=== PATIENT | female | born 1945 | race Caucasian/White ===

== ENCOUNTER → 2016-11-24 | Outpatient (CLI) | payer OTHER ==
[~2016-11-24] MED LIST: ACET-1256 PO; ALBI1INJ INJ; ALPR-411 PO; ALPR0.25 PO; AMOX500C3 PO; CLTP PO; EMBREL; EMPA1TAB3 PO; FOLI1TAB7 PO; GABA1CAP5 PO; GABA300C19 PO; GABA400C PO; GLIM4TAB2 PO; HYDR-5688 PO; HYDR2.5O TOP; INDSR80 PO; LORA10TA5 PO; LPT/40 PO; LRT5 PO; METH2.5T PO; PANT40TA PO; PREDPOW63; PRT/20 PO; RIZA10TA18 PO; RMCI IV; TRAM-10 PO; ULT/50 PO; albuterol inhaler INH; coumadin PO
[2016-11-24 18:24] LABS: BASO % 0.6 %; BASO ABS # 0.06 K/uL (0-0.2); COMPLETE YES; EOS % 1.4 %; HEMATOCRIT 41.8 % (37-47); IG% 0.3 %; LYMPH % 28.2 %; LYMPH ABS # 2.62 K/uL (1.2-3.4); MEAN CELL VOLUME 85.8 fL (80-100); MEAN CORPUSCULAR HEMOGLOBIN 26.5 pg (25-34); MEAN CORPUSCULAR HGB CONC 30.9 g/dl (32-36); MEAN PLATELET VOLUME 9.8 fL (7.4-10.4); MONO % 14.6 %; NEUT % 54.9 %; PLATELET COUNT 242 K/uL (130-400); RED BLOOD COUNT 4.87 M/uL (4.2-5.4)
[2016-11-24 18:33] LABS: ALT/SGPT 20 U/L (12-78); BLOOD UREA NITROGEN 16 mg/dl (7-18); BUN/CREATININE RATIO 19.1 (10-20); CALCIUM 9.1 mg/dl (8.5-10.1); CARBON DIOXIDE 29 mmol/L (21-32); CHLORIDE 101 mmol/L (98-107); CREATININE 0.86 mg/dl (0.60-1.20); GLUCOSE 103 mg/dl (70-99); POTASSIUM 4.3 mmol/L (3.5-5.1); SODIUM 141 mmol/L (136-145)
[2016-11-24 18:35] LABS: ALB/GLOB RATIO 0.7 (0.9-2); ALKALINE PHOSPHATASE 51 U/L (45-117); AST/SGOT 24 U/L (15-37)
--- NOTE | 2016-12-01 11:14 | CODING QUERY NO DIAGNOSIS ---
TREATMENT RENDERED WITHOUT A DIAGNOSIS To promote full compliance with coding requirements relating to patient care, physician participation is requested in all cases of claims agent right of way uncertainty. Please assist us with providing a diagnosis/symptom for the test(s) below: A diagnosis/symptom was not documented on your Order. A valid diagnosis/symptom is required to bill all insurances. Please remember that we are unable to code a diagnosis of rule out, probable, possible, questionable, or suspected. Tests that require a diagnosis: DOS 11/24/16 * CBC DIAGNOSIS: * CMP DIAGNOSIS: Provider Signature: Date: Thank you Joellen Thomason Health Information Management Once completed, please kindly fax back to [phone] For questions please call [phone]
== END | disposition home or self-care (01) ==
LOC: C.LABMFLN 14:46
PROVIDERS: ATTEND Family Medicine
DX: R05 Cough (principal)

== ENCOUNTER → 2016-12-02 | Outpatient (CLI) | payer OTHER ==
[2016-12-02 13:44] LABS: ALT/SGPT 20 U/L (12-78); AST/SGOT 10 U/L (15-37); BLOOD UREA NITROGEN 16 mg/dl (7-18); BUN/CREATININE RATIO 18.3 (10-20); CALCIUM 8.7 mg/dl (8.5-10.1); CARBON DIOXIDE 33 mmol/L (21-32); CHLORIDE 99 mmol/L (98-107); CREATININE 0.88 mg/dl (0.60-1.20); GLUCOSE 122 mg/dl (70-99); POTASSIUM 3.9 mmol/L (3.5-5.1); SODIUM 139 mmol/L (136-145)
[2016-12-02 13:47] LABS: ALB/GLOB RATIO 0.8 (0.9-2); ALKALINE PHOSPHATASE 49 U/L (45-117); CHOLESTEROL 147 mg/dl (0-200); CHOLESTEROL/HDL RATIO 1.9; HDL CHOLESTEROL 77 mg/dl; LDL CHOLESTEROL CALCULATED 39 mg/dl; TRIGLYCERIDES 153 mg/dl (0-150); VERY LOW DENSITY LIPOPROT CALC 31 mg/dl
[2016-12-02 14:08] LABS: ESTIMATED AVERAGE GLUCOSE 169 mg/dl; HA1C FLAG Normal (Normal)
== END | disposition home or self-care (01) ==
LOC: C.LABMFLN 08:35
PROVIDERS: ATTEND Family Medicine
DX: E78.5 Hyperlipidemia, unspecified (principal); I10 Essential (primary) hypertension; E11.40 Type 2 diabetes mellitus with diabetic neuropathy, unspecified

== ENCOUNTER → 2017-05-20 | Outpatient (CLI) | payer OTHER ==
[2017-05-20 18:16] LABS: BLOOD UREA NITROGEN 11 mg/dl (7-18); BUN/CREATININE RATIO 14.8 (10-20); CALCIUM 8.8 mg/dl (8.5-10.1); CARBON DIOXIDE 31 mmol/L (21-32); CHLORIDE 107 mmol/L (98-107); CREATININE 0.77 mg/dl (0.60-1.20); GLUCOSE 137 mg/dl (70-99); POTASSIUM 3.9 mmol/L (3.5-5.1); SODIUM 143 mmol/L (136-145)
[2017-05-21 07:47] LABS: ESTIMATED AVERAGE GLUCOSE 160 mg/dl; HA1C FLAG Normal (Normal)
== END | disposition home or self-care (01) ==
LOC: C.LABMFLN 14:20
PROVIDERS: ATTEND Family Medicine
DX: E11.40 Type 2 diabetes mellitus with diabetic neuropathy, unspecified (principal)

== ENCOUNTER 2017-07-01 07:48 | Day surgery (SDC) | payer OTHER ==
[2017-06-28 15:12] VITALS: BMI 42.0
[2017-06-28 16:32] LABS: BASO % 0.5 %; BASO ABS # 0.04 K/uL (0-0.2); EOS % 2.4 %; HEMATOCRIT 40.6 % (37-47); IG% 0.2 %; LYMPH % 31.1 %; LYMPH ABS # 2.72 K/uL (1.2-3.4); MEAN CELL VOLUME 86.8 fL (80-100); MEAN CORPUSCULAR HEMOGLOBIN 25.4 pg (25-34); MEAN CORPUSCULAR HGB CONC 29.3 g/dl (32-36); MEAN PLATELET VOLUME 9.9 fL (7.4-10.4); MONO % 7.7 %; NEUT % 58.1 %; PLATELET COUNT 284 K/uL (130-400); RED BLOOD COUNT 4.68 M/uL (4.2-5.4); WHITE BLOOD COUNT 8.74 K/uL (4.8-10.8)
--- NOTE | 2017-06-28 16:37 | DIAGNOSTIC IMAGING REPORT ---
FLEXION-EXTENSION LATERAL VIEWS OF CERVICAL SPINE (3 VIEWS) CLINICAL HISTORY: Rheumatoid enteritis. Preoperative study. COMPARISON STUDY: 02/21/2015 FINDINGS: There are moderate arthritic changes at the C5-6 and C6-7 levels. There is 2.9 mm of retrolisthesis of C5 on C6. There is no significant instability on flexion or extension. The prevertebral soft tissues are normal. No fractures are visualized. IMPRESSION: 1. Arthritic change 2. No evidence of instability on flexion or extension Electronically signed by: Julian Diallo M.D. 06/28/2017 4:35 PM Dictated Date/Time: 06/28/2017 4:34 PM
[2017-06-28 16:45] LABS: URINE APPEARANCE CLEAR (CLEAR); URINE BILIRUBIN NEG (NEG); URINE COLOR YELLOW; URINE NITRITE NEG (NEG); URINE SPECIFIC GRAVITY 1.041 (1.000-1.030); UROBILINOGEN NEG (NEG)
[2017-06-28 16:47] LABS: PROTHROMBIN TIME (PATIENT) 10.3 SECONDS (9.0-12.0)
[2017-06-28 16:55] LABS: MANUAL MICROSCOPIC REQUIRED? NO; REVIEW REQ? NO
[2017-06-28 16:57] LABS: ANISOCYTOSIS PRESENT; COMPLETE YES
--- NOTE | 2017-06-28 18:28 | PAT Medication Instructions ---
Service Date Jun 28, 2017. Current Home Medication List Acetaminophen (Tylenol), 1,000 MG PO PRN Albiglutide (Tanzeum), 30 MG INJ FRIDAYS Alprazolam (Xanax), 0.5 MG PO HS Atorvastatin (Lipitor), 40 MG PO HS Calcium/Vitamin D (Caltrate 600 Plus *), 1,200 MG PO BID Empagliflozin (Jardiance), 25 MG PO QAM Folic Acid (Folvite), 1 MG PO QPM Gabapentin (Neurontin), 800 MG PO AM/HS Gabapentin (Neurontin), 400 MG PO QPM Glimepiride (Glimepiride), 1 TAB PO BID Hydrocortisone (Topical) (Hydrocortisone), 1 APPLN TOP PRN Infliximab (Remicade), 300 MG IV [id number] Methotrexate Sodium (Methotrexate), 15 MG PO JN Pantoprazole (Protonix), 40 MG PO BID Propranolol La (Inderal La *), 160 MG PO HS Tramadol (Ultram), 100 MG PO AM/HS Medication Instructions For Your Scheduled Surgery - Check with surgeon/doctorate of chiropractic for instructions: Methotrexate Sodium (Methotrexate), 15 MG PO TUESDAY Infliximab (Remicade), 300 MG IV [id number] - Hold the following medications 24 hours prior to surgery: Hydrocortisone (Topical) (Hydrocortisone), 1 APPLN TOP PRN - Hold the following medications the morning of surgery: Albiglutide (Tanzeum), 30 MG INJ FRIDAYS Calcium/Vitamin D (Caltrate 600 Plus *), 1,200 MG PO BID Empagliflozin (Jardiance), 25 MG PO QAM Glimepiride (Glimepiride), 1 TAB PO BID - Take the following medications the morning of surgery with a sip of water: Tramadol (Ultram), 100 MG PO AM/HS Pantoprazole (Protonix), 40 MG PO BID Gabapentin (Neurontin), 800 MG PO AM/HS Acetaminophen (Tylenol), 1,000 MG PO PRN (if needed) - Take the following medications as scheduled the night before surgery: Tramadol (Ultram), 100 MG PO AM/HS Propranolol La (Inderal La *), 160 MG PO HS Pantoprazole (Protonix), 40 MG PO BID Glimepiride (Glimepiride), 1 TAB PO BID Gabapentin (Neurontin), 400 MG PO QPM Gabapentin (Neurontin), 800 MG PO AM/HS Folic Acid (Folvite), 1 MG PO QPM Acetaminophen (Tylenol), 1,000 MG PO PRN (if needed) Alprazolam (Xanax), 0.5 MG PO HS Atorvastatin (Lipitor), 40 MG PO HS If you have any questions please call us at [phone] or [phone] or [phone]
--- NOTE | 2017-06-30 21:59 | History and Physical ---
History & Physical Date Jun 30, 2017. Chief Complaint left 2nd toe pain History of Present Illness The patient is a 71 year old female with complaints of chronic left 2nd toe pain. She has a hx of ulceration. She's been treated with diabetic foot care however the swelling of the 2nd toe and pain had worsened. She had an MRI which noted osteomyelitis within the second toe left foot. She is now being set up for amputation. Past Medical/Surgical History PMH: GERD, Asthma, Rheumatoid Arthritis, DM with diabetic neuropathy. Past surgical hx: TKA in 2011, bleeding ulcer surgery in 2002, thumb surgery bilateral 1982 and 1983, ORIF left ankle, right foot surgery x 2. Social hx: Denies alcohol and tobacco use. Allergies Coded Allergies: Codeine (Verified Adverse Reaction, Mild, N/V, 06/28/17) Aspirin (Verified Adverse Reaction, Unknown, N/V, 06/28/17) Oxycodone (Verified Adverse Reaction, Unknown, N/V, 06/28/17) Propoxyphene (Verified Adverse Reaction, Unknown, N/V, 06/28/17) Home Medications Scheduled Acetaminophen (Tylenol), 1,000 MG PO PRN Albiglutide (Tanzeum), 30 MG INJ FRIDAYS Alprazolam (Xanax), 0.5 MG PO HS Amoxicillin (Amoxil), 500 MG PO BID Atorvastatin (Lipitor), 40 MG PO HS Calcium/Vitamin D (Caltrate 600 Plus *), 1,200 MG PO BID Empagliflozin (Jardiance), 25 MG PO QAM Folic Acid (Folvite), 1 MG PO QPM Gabapentin (Neurontin), 800 MG PO AM/HS Gabapentin (Neurontin), 400 MG PO QPM Glimepiride (Glimepiride), 1 TAB PO BID Hydrocortisone (Topical) (Hydrocortisone), 1 APPLN TOP PRN Infliximab (Remicade), 300 MG IV [id number] Methotrexate Sodium (Methotrexate), 15 MG PO JN Pantoprazole (Protonix), 40 MG PO BID Propranolol La (Inderal La *), 160 MG PO HS Tramadol (Ultram), 100 MG PO AM/HS Physical Examination Skin: warm/dry, no rash Eyes: normal inspection Head: normocephalic, atraumatic Neck: supple, trachea midline Respiratory/Chest: lungs clear, normal breath sounds, no respiratory distress Cardiovascular: regular rate, rhythm, no murmur Abdomen / GI: normal bowel sounds, non tender Extremities: + pertinent finding (Left foot: swelling of the second toe with deformity. Erythema noted. Tender to palpation but overall sensation is decreased throughout the foot. Decreased ROM and strength of the left foot.) Neurologic/Psych: alert, oriented x 3 Diagnosis Left 2nd toe osteomyelitis. Plan of Treatment Recommend a left 2nd toe amputation. All potential risks, benefits, complications, alternatives and rehab have been discussed with the patient and she wishes to proceed. She will be scheduled for 07.01.17.
[~2017-07-01] VITALS: Ht 154.9 cm; Wt 101.3 kg
[~2017-07-01 07:48] MED LIST changes: -ALPR0.25 PO; +CEFAZOLIN 2000 MG/60 ML D5W IV SCH; -EMBREL; -GABA300C19 PO; -HYDR-5688 PO; +LACTATED RINGER'S 1000ML 1,000 ML IV SCH; -LORA10TA5 PO; -LRT5 PO; -PREDPOW63; -PRT/20 PO; -RIZA10TA18 PO; -ULT/50 PO; -albuterol inhaler INH; -coumadin PO
[2017-07-01 08:10] VITALS: BP 139/88; PULSE 72; TEMP 36.6; O2SAT 97; Ht 154.9 cm; Wt 101.3 kg
[2017-07-01] MEDS ORDERED: albuterol inhaler INH (08:29)
--- NOTE | 2017-07-01 09:38 | History & Physical Bridge Note ---
H&P Re-Evaluation Bridge Note: I have examined the patient, reviewed the History & Physical and in the interval since the performance of the History & Physical I have noted the following changes of clinical significance: No changes noted
[2017-07-01] MEDS ORDERED: LIDOCAINE HCL 2% 2 ML VIAL (20MG/ML) ONE (10:39)
[2017-07-01] MEDS ORDERED: PROPOFOL IV EMULSION 10 MG/ML 20 ML VIAL IV ONE (10:39)
[2017-07-01] MEDS ORDERED: MIDAZOLAM HCL 1 MG/ML 2ML VIAL ONE (10:39)
[2017-07-01] MEDS ORDERED: FENTANYL CITRATE INJ 50 MCG/1 ML 2 ML VIAL ONE (10:39)
[2017-07-01] MEDS ORDERED: BUPIVACAINE/EPINEPHRINE 0.5% MPF 1:200,000 10 ML VIAL ONE (10:44)
[2017-07-01] MEDS ORDERED: LIDOCAINE HCL 1% 20 ML VIAL ONE (10:44)
[2017-07-01] MEDS ORDERED: ONDANSETRON INJ 2 MG/ML 2 ML VIAL IV PRN (11:15)
[2017-07-01] MEDS ORDERED: FENTANYL CITRATE INJ 50 MCG/1 ML 2 ML VIAL IV PRN (11:15)
[2017-07-01] MEDS ORDERED: LABETALOL HCL IV 5 MG/ML 20ML IV PRN (11:15)
[2017-07-01] MEDS ORDERED: ATROPINE SULFATE 0.1 MG/ML 5ML SYR IV PRN (11:15)
[2017-07-01] MEDS ORDERED: EpHEDrine SULFATE INJ 50 MG/ML AMP IV PRN (11:15)
[2017-07-01] MEDS ORDERED: MEPERIDINE HCL 25 MG/ML CARP IV PRN (11:15)
[2017-07-01] MEDS ORDERED: HYDROmorphone INJ 1 MG/ML SYR IV PRN (11:15)
[2017-07-01] MEDS ORDERED: BUPIVACAINE 0.5 % 5 MG/1 ML MPF 30ML VIAL ONE (12:19)
--- NOTE | 2017-07-01 12:29 | Discharge Instructions ---
Discharge Instructions Date of Service Jul 01, 2017. Admission Reason for Admission: Left Second Toe Osteoarthritis Discharge Discharge Diagnosis / Problem: left 2nd toe osteomyelitis Discharge Goals Goal(s): Decrease discomfort, Improve function, Improve disease control Activity Recommendations Activity Limitations: per Instructions/Follow-up section Weightbearing Status: Left partial (Heel weightbearing only) . Instructions / Follow-Up Instructions / Follow-Up ACTIVITY RECOMMENDATIONS: Limitations: Heel weight bearing only if able to tolerate. SPECIAL CARE INSTRUCTIONS: * Some drainage onto the dressing is normal and is no cause for alarm. * Some swelling is natural especially after walking. * When resting, keep your foot elevated above the level of your heart. * Call [facility] if you notice: -Increased drainage -Fever over 101 degrees F -Severe constant pain BANDAGE: * Leave bandage/cast in place unless otherwise directed. * Keep bandage/cast dry at all times. PIN CARE: * Leave pins alone. * If pins come loose or fall out, notify physician. FOLLOW UP VISIT WITH DR. LOVELACE If appointment is not already scheduled: Please call [facility] after you get home today to schedule a follow-up appointment for [address] Lovelace at . Current Hospital Diet Patient's current hospital diet: Discharge Diet Recommended Diet: Diabetes Type 2 Diet Pending Studies Studies pending at discharge: no Laboratory Results Hemoglobin A1c Test 05/20/17 14:23 Range/Units Estimated Average Glucose 160 mg/dl Hemoglobin A1c 7.2 H 4.5-5.6 % Medical Emergencies . Who to Call and When: Medical Emergencies: If at any time you feel your situation is an emergency, please call 911 immediately. . Non-Emergent Contact Non-Emergency issues call your: Surgeon Call Non-Emergent contact if: temperature is above 101, your pain is not controlled, your pain is worsening, wound has increased drainage, wound has increased redness . "Provider Documentation" section prepared by Josh Spann. . VTE Core Measure Inpt VTE Proph given/why not?: Negar Son
[2017-07-01] MEDS ORDERED: HYDR-5688 PO (12:33)
--- NOTE | 2017-07-01 12:56 | [facility] Post Operative Brief Note ---
Immediate Operative Summary Operative Date Jul 01, 2017. Pre-Operative Diagnosis Left second toe osteomyelitis distal phalanx Post-Operative Diagnosis Same as preop Procedure(s) Performed Left 2nd Toe Partial Amputation Surgeon Dr. Ford Fine Dining Server Surgeon(s) none Estimated Blood Loss less than 1cc Findings See dict Specimens A: partial left second toe; distal phalanx and distal portion middle phalanx Drains None Anesthesia Local digital block w/ sedation Complication(s) None Disposition Recovery Room / PACU
--- NOTE | 2017-07-01 13:14 | Anesthesiology Progress Note ---
Anesthesia Post Op Note Date & Time Jul 01, 2017 at 13:13 Vital Signs Pain Intensity: 0 Vital Signs Past 12 Hours Date Time Temp Pulse Resp B/P (MAP) Pulse Ox O2 Delivery O2 Flow Rate FiO2 07/01/17 13:10 67 16 133/77 100 Room Air 07/01/17 13:00 68 14 136/80 100 Room Air 07/01/17 12:54 36.2 68 14 136/74 100 Room Air 07/01/17 08:10 36.6 72 20 139/88 (105) 97 Room Air Notes Mental Status: alert / awake / arousable, participated in evaluation Pt Amnestic to Procedure: Yes Nausea / Vomiting: adequately controlled Pain: adequately controlled Airway Patency, RR, SpO2: stable & adequate BP & HR: stable & adequate Hydration State: stable & adequate Anesthetic Complications: no major complications apparent
[2017-07-01 13:30] VITALS: BP 133/60; PULSE 67; TEMP 36.4; O2SAT 94
[2017-07-01 14:00] VITALS: BP 112/57; PULSE 67; PULSE 68; TEMP 36.3; O2SAT 94
--- NOTE | 2017-07-01 17:16 | OPERATIVE REPORT ---
DATE OF OPERATION: 07/01/2017 PREOPERATIVE DIAGNOSIS: Left second toe osteomyelitis of the distal phalanx. POSTOPERATIVE DIAGNOSIS: Same. PROCEDURE: Left second toe partial amputation including distal phalanx and a portion of the middle phalanx. SURGEON: Dr. Tez Ford. COMPUTING SERVICES DIRECTOR: None. ANESTHESIA: Local with sedation. SPECIMENS: Distal aspect of the left second toe. DRAINS: None. COMPLICATIONS: None. BLOOD LOSS: 1 mL. 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 She had attempted conservative management including shoe wear modification, activity modification, anti-inflammatories, rest and failed this. She had a consistent and worsening of callus in the left second toe, which then involved her nail plate and the nail matrix. This developed into osteomyelitis, which was then confirmed with MRI. The patient had attempted antibiotics to treat the osteomyelitis; however, had recurrent episodes of redness, swelling and pain. The patient was then scheduled for surgery as indicated for partial amputation of the left second toe. All potential risks, benefits, complications, alternatives, rehab, potential for incomplete relief of symptoms, need for further surgery, DVT, PE, , persistent pain, swelling, scarring, weakness, neurovascular injury, and wound complications were discussed with the patient. The patient decided to proceed with the procedure as indicated. DESCRIPTION OF PROCEDURE: The patient was taken to the operative suite and placed supine on the operating room table. After review of consent and identification of proper operative site, the patient was sedated. Next, the left lower extremity was then sterilely prepped and draped in the usual fashion, elevated and the foot was exsanguinated with an Esmarch bandage down to the level of the ankle and an Esmarch tourniquet was applied over sterile surgical towel. Next, the digital block was then performed of the left second toe base with approximately 12 mL of 0.5% Marcaine plain. After the local anesthetic became effective and the block was noted to be complete, a 15 blade scalpel was then used to make a racquet-shaped incision in the distal aspect of the left second toe at the level of the distal interphalangeal joint. Dorsal incision was made through the skin, subcutaneous tissue, extensor mechanism and capsule and then the medial and lateral limbs of the incision were continued circumferentially around the toe. Next, dissection was performed with a 15 blade scalpel through the plantar plate and then continued to the inferior aspect of the distal phalanx with a 15 blade scalpel. Next, the toe distal phalanx was then removed and then passed off for specimen. Next, the distal aspect of the middle phalanx was then skeletonized to the level of the metaphyseal flare with 15 blade scalpel. A bone biting rongeur was then used to resect the distal aspect of the middle phalanx and the plantar flap was then fashioned with a 15 blade scalpel. The wound was copiously irrigated with sterile normal saline and bacitracin followed by loose approximation with 4-0 nylon sutures. Next, a sterile compressive dressing was applied to the left second toe, overwrapped with a Coban. The tourniquet was then released. The patient was then awakened and taken to recovery in stable condition. I attest to the content of the Intraoperative Record and any orders documented therein. Any exceptions are noted below. JOANA
== END 2017-07-01 14:38 | disposition home or self-care (01) ==
LOC: C.ACU 07:48
PROVIDERS: ATTEND Orthopaedic Surgery Sports Medicine
DX: M86.672 Other chronic osteomyelitis, left ankle and foot (principal); M20.62 Acquired deformities of toe(s), unspecified, left foot; E11.40 Type 2 diabetes mellitus with diabetic neuropathy, unspecified; I10 Essential (primary) hypertension; M06.9 Rheumatoid arthritis, unspecified; L57.8 Other skin changes due to chronic exposure to nonionizing radiation; Z79.899 Other long term (current) drug therapy

== ENCOUNTER → 2017-09-07 | Outpatient (CLI) | payer OTHER ==
[~2017-09-07] MED LIST changes: -CEFAZOLIN 2000 MG/60 ML D5W IV SCH; +HYDR-5688 PO; -LACTATED RINGER'S 1000ML 1,000 ML IV SCH; -METH2.5T PO; -TRAM-10 PO; +albuterol inhaler INH
[2017-09-07 18:22] LABS: ALT/SGPT 20 U/L (12-78); AST/SGOT 12 U/L (15-37); BLOOD UREA NITROGEN 12 mg/dl (7-18); BUN/CREATININE RATIO 14.5 (10-20); CALCIUM 8.5 mg/dl (8.5-10.1); CARBON DIOXIDE 27 mmol/L (21-32); CHLORIDE 107 mmol/L (98-107); CREATININE 0.82 mg/dl (0.60-1.20); GLUCOSE 149 mg/dl (70-99); POTASSIUM 3.9 mmol/L (3.5-5.1); SODIUM 139 mmol/L (136-145)
[2017-09-07 18:24] LABS: ALB/GLOB RATIO 0.7 (0.9-2); ALKALINE PHOSPHATASE 57 U/L (45-117); CHOLESTEROL 130 mg/dl (0-200); CHOLESTEROL/HDL RATIO 2.4; HDL CHOLESTEROL 54 mg/dl; LDL CHOLESTEROL CALCULATED 43 mg/dl; TRIGLYCERIDES 167 mg/dl (0-150); VERY LOW DENSITY LIPOPROT CALC 33 mg/dl
[2017-09-07 18:28] LABS: CREATININE RANDOM URINE 71.3 mg/dl
[2017-09-08 06:32] LABS: ESTIMATED AVERAGE GLUCOSE 163 mg/dl; HA1C FLAG Normal (Normal)
== END | disposition home or self-care (01) ==
LOC: C.LABMFLN 16:08
PROVIDERS: ATTEND Family Medicine
DX: E78.5 Hyperlipidemia, unspecified (principal); E11.42 Type 2 diabetes mellitus with diabetic polyneuropathy

== ENCOUNTER → 2017-12-27 | Outpatient (CLI) | payer OTHER ==
[~2017-12-27] MED LIST changes: -FOLI1TAB7 PO; +FOLI1TAB8 PO; +GABA-1220 PO; -GABA1CAP5 PO
[2017-12-27 17:53] LABS: BASO % 0.6 %; BASO ABS # 0.05 K/uL (0-0.2); EOS % 2.4 %; EOS ABS # 0.19 K/uL (0-0.5); HEMATOCRIT 41.9 % (37-47); HEMOGLOBIN 12.6 g/dL (12.0-16.0); IG# 0.02 K/uL (0.00-0.02); LYMPH % 30.9 %; LYMPH ABS # 2.49 K/uL (1.2-3.4); MEAN CELL VOLUME 85.9 fL (80-100); MEAN CORPUSCULAR HEMOGLOBIN 25.8 pg (25-34); MEAN CORPUSCULAR HGB CONC 30.1 g/dl (32-36); MEAN PLATELET VOLUME 10.1 fL (7.4-10.4); MONO % 7.3 %; MONO ABS # 0.59 K/uL (0.11-0.59); NEUT % 58.6 %; NEUT ABS # 4.72 K/uL (1.4-6.5); PLATELET COUNT 255 K/uL (130-400); RED CELL DISTRIBUTION WIDTH CV 18.8 % (11.5-14.5); RED CELL DISTRIBUTION WIDTH SD 57.8 fL (36.4-46.3); WHITE BLOOD COUNT 8.06 K/uL (4.8-10.8)
[2017-12-27 18:25] LABS: BLOOD UREA NITROGEN 10 mg/dl (7-18); CALCIUM 8.9 mg/dl (8.5-10.1); CARBON DIOXIDE 31 mmol/L (21-32); CREATININE 0.96 mg/dl (0.60-1.20); GLUCOSE 89 mg/dl (70-99); POTASSIUM 4.3 mmol/L (3.5-5.1); SODIUM 139 mmol/L (136-145)
== END | disposition home or self-care (01) ==
LOC: C.LABMFLN 15:17
PROVIDERS: ATTEND Family Medicine
DX: I95.9 Hypotension, unspecified (principal)

== ENCOUNTER → 2018-01-25 | Outpatient (CLI) | payer OTHER ==
[~2018-01-25] MED LIST changes: -HYDR-5688 PO
[2018-01-25 18:14] LABS: ALBUMIN 3.2 gm/dl (3.4-5.0); ALT/SGPT 20 U/L (12-78); BLOOD UREA NITROGEN 7 mg/dl (7-18); CALCIUM 8.8 mg/dl (8.5-10.1); CARBON DIOXIDE 30 mmol/L (21-32); CREATININE 0.97 mg/dl (0.60-1.20); GLUCOSE 206 mg/dl (70-99); SODIUM 137 mmol/L (136-145)
[2018-01-25 18:19] LABS: ALKALINE PHOSPHATASE 48 U/L (45-117); AST/SGOT 27 U/L (15-37); CHOLESTEROL 94 mg/dl (0-200); LDL CHOLESTEROL CALCULATED 30 mg/dl; TOTAL PROTEIN 7.4 gm/dl (6.4-8.2)
[2018-01-25 19:00] LABS: BASO % 0.4 %; BASO ABS # 0.03 K/uL (0-0.2); EOS % 1.8 %; EOS ABS # 0.13 K/uL (0-0.5); HEMATOCRIT 40.1 % (37-47); IG# 0.01 K/uL (0.00-0.02); LYMPH % 22.6 %; LYMPH ABS # 1.62 K/uL (1.2-3.4); MEAN CELL VOLUME 86.4 fL (80-100); MEAN CORPUSCULAR HEMOGLOBIN 25.9 pg (25-34); MEAN CORPUSCULAR HGB CONC 29.9 g/dl (32-36); MEAN PLATELET VOLUME 10.1 fL (7.4-10.4); MONO % 11.4 %; MONO ABS # 0.82 K/uL (0.11-0.59); NEUT % 63.7 %; NEUT ABS # 4.57 K/uL (1.4-6.5); NUCLEATED RED BLOOD CELL ABS 0.04 K/uL (0-0); PLATELET COUNT 236 K/uL (130-400); RED CELL DISTRIBUTION WIDTH CV 20.7 % (11.5-14.5); RED CELL DISTRIBUTION WIDTH SD 63.6 fL (36.4-46.3); WHITE BLOOD COUNT 7.18 K/uL (4.8-10.8)
[2018-01-26 07:29] LABS: HEMOGLOBIN A1C 6.9 % (4.5-5.6)
== END | disposition home or self-care (01) ==
LOC: C.LABMFLN 15:00
PROVIDERS: ATTEND Family Medicine
DX: M06.9 Rheumatoid arthritis, unspecified (principal); E78.5 Hyperlipidemia, unspecified; I10 Essential (primary) hypertension; I95.9 Hypotension, unspecified; E11.40 Type 2 diabetes mellitus with diabetic neuropathy, unspecified; R42 Dizziness and giddiness; R53.83 Other fatigue

== ENCOUNTER → 2018-06-21 | Outpatient (CLI) | payer OTHER ==
[~2018-06-21] MED LIST changes: +ALBI1INJ SC; +CLR10 PO; -EMPA1TAB3 PO; -GABA-1220 PO; -GABA400C PO; +GLIM2TAB2 PO; -GLIM4TAB2 PO; -INDSR80 PO; +METH2.5T PO; +NRN/300 PO
[2018-06-21 18:36] LABS: ALBUMIN 3.2 gm/dl (3.4-5.0); ALKALINE PHOSPHATASE 52 U/L (45-117); ALT/SGPT 21 U/L (12-78); AST/SGOT 20 U/L (15-37); BLOOD UREA NITROGEN 11 mg/dl (7-18); CALCIUM 8.3 mg/dl (8.5-10.1); CARBON DIOXIDE 26 mmol/L (21-32); CHOLESTEROL 130 mg/dl (0-200); CREATININE 0.96 mg/dl (0.60-1.20); GLUCOSE 194 mg/dl (70-99); LDL CHOLESTEROL CALCULATED 40 mg/dl; POTASSIUM 3.9 mmol/L (3.5-5.1); SODIUM 137 mmol/L (136-145); TOTAL PROTEIN 7.5 gm/dl (6.4-8.2)
[2018-06-22 06:57] LABS: HEMOGLOBIN A1C 7.1 % (4.5-5.6)
== END | disposition home or self-care (01) ==
LOC: C.LABMFLN 14:44
PROVIDERS: ATTEND Family Medicine
DX: M06.9 Rheumatoid arthritis, unspecified (principal); E78.5 Hyperlipidemia, unspecified; I10 Essential (primary) hypertension; E11.40 Type 2 diabetes mellitus with diabetic neuropathy, unspecified

== ENCOUNTER → 2018-07-05 | Day surgery (SDC) | payer OTHER ==
[2018-06-15 13:22] VITALS: Ht 153.7 cm; Wt 100.5 kg
[~2018-07-05] VITALS: Ht 153.7 cm; Wt 100.5 kg
[~2018-07-05] MED LIST changes: +500ML BSS 0.3ML EPI 1:1000PF IRRIG ONE; +ACETAMINOPHEN 325 MG TAB PO PRN; +AMVISC PLUS 0.8ML SYRINGE INT OCU ONE; +ATROPINE SULFATE 0.1 MG/ML 5ML SYR IV PRN; +BSS FLUSH ONE; +ENDOCOAT 0.85ML SYRINGE INT OCU ONE; +EpHEDrine SULFATE INJ 50 MG/ML AMP IV PRN; +EpINEphrine INJ 1MG/ML AMP 1 MG/ML AMP ONE; +LACTATED RINGER'S 1000ML 500 ML IV SCH; +LIDOCAINE 4% OP SOLN DROP CHARGE ONE; +LIDOCAINE 4% OP SOLN DROP CHARGE OPR SCH; +LIDOCAINE HCL 1% MPF 2 ML VIAL ONE; +MIDAZOLAM HCL 1 MG/ML 2ML VIAL ONE; +MIX: 4ML BSS 1ML EPI 1:1000 PF TOP ONE; +MOXIFLOXACIN OPH SOLN PER DROP CHARGE ONE; +POVIDONE-IODINE OP SOLN 30 ML BTL ONE; +PROPARACAINE 0.5% OP SOLN PER DROP CHARGE OPR SCH; +TOBRAMYCIN/DEXAMETHASONE OPH OINT PER APPLN CHARGE ONE
[2018-07-05] MEDS: PHENYLEPHRINE HCL 2.5% OP SOLN PER DROP CHARGE OPR SCH ×3 (09:16→09:26)
[2018-07-05] MEDS: TROPICAMIDE 1% OP SOLN PER DROP CHARGE OPR SCH ×3 (09:17→09:27)
[2018-07-05] MEDS: CYCLOPENTOLATE HCL 1% OP SOLN PER DROP CHARGE OPR SCH ×3 (09:18→09:28)
[2018-07-05] MEDS: MOXIFLOXACIN OPH SOLN PER DROP CHARGE OPR SCH ×3 (09:19→09:29)
--- NOTE | 2018-07-05 10:10 | [facility] Post Operative Brief Note ---
Immediate Operative Summary Operative Date Jul 05, 2018. Pre-Operative Diagnosis Cataract right eye Post-Operative Diagnosis Cataract right eye Procedure(s) Performed Right Cataract Phacoemulsification With Intraocular Lens Implant Surgeon Dr. Brant Marinelli Outsole Cutter Machine Surgeon(s) None Estimated Blood Loss 0ml Findings Consistent with Post-Op Diagnosis Specimens None per surgeon Drains None Anesthesia Type MAC Complication(s) none Disposition Accompanied Pt To Recover: no Disposition:
--- NOTE | 2018-07-05 10:10 | [facility] Operative Report ---
Operative Report Date of Service Jul 05, 2018. Operative Report DATE OF OPERATION: 07/05/18 PREOPERATIVE DIAGNOSIS: Senile nuclear cataract, right eye POSTOPERATIVE DIAGNOSIS: Senile nuclear cataract, right eye PROCEDURE PERFORMED: Phacoemulsification with intraocular lens implantation, right eye SURGEON: Dr. Brant Marinelli ANESTHESIA: Topical with 1% intracameral lidocaine and monitored anesthesia care COMPLICATIONS: None DESCRIPTION OF PROCEDURE: After positively identifying the patient both verbally and by wristband in the preoperative area, the right eye was marked as the operative eye. The patient was then brought back to the operating room by the anesthesia and nursing staff where they were given a drop of Lidocaine and betadine into the operative eye. They were then sterilely prepped and draped in the standard fashion typical for ophthalmic surgery. Steri-strips were placed along the upper eyelids to keep the lashes back, and a lid speculum was placed into the operative eye. At this point, a documented time out was performed with members of the ophthalmology, nursing, and anesthesia staffs all agreeing upon the correct patient, correct location for surgery, correct procedure, and correct type and power of intraocular lens to be implanted. The microscope was then swung into position. First, a paracentesis wound was made using a sideport blade. Then, in sequence, 1% preservative-free lidocaine followed by Endocoat viscoelastic was injected into the anterior chamber. Next , the main incision was made with a keratome blade in triplanar fashion. A sharp cystotome was introduced into the eye and used to create a tear in the anterior capsule, which was directed into a continuous curvilinear capsulorrhexis using Utrata forceps. Hydrodissection was then performed with BSS on a flat-tip cannula. Next, the phacoemulsification handpiece was introduced into the eye and used to remove the nucleus in a [id number] fashion. This was done without complication and then the irrigation-aspiration handpiece was introduced into the eye and used to remove all remaining cortical and epinuclear material. Amvisc was then injected into the anterior chamber as well as into the capsular bag and using the lens injector system, an MX60 22.0 D lens, serial number [id number], and expiration date 11/2020 was injected into the capsular bag and rotated into the correct position. Next, the irrigation- aspiration handpiece was used to remove all remaining Amvisc. BSS was used to hydrate the main wound, and then BSS was injected into the paracentesis site to reach physiologic pressure and then the main wound was checked and found to be watertight. The patient was given drops of Vigamox and Tobradex ointment into the operative eye, and then the surrounding area was cleaned and dried. A clear plastic shield was placed over the eye and the patient was then sat up and taken from the operating room by the anesthesia staff having tolerated the procedure well and suffering no complications. DISPOSITION: The patient was returned to the recovery room in stable condition. I attest to the content of the Intraoperative Record and any orders documented therein. Any exceptions are noted below.
--- NOTE | 2018-07-05 10:11 | Discharge Instructions-SurgCtr ---
Discharge Instructions Date of Service Jul 05, 2018. Visit Reason for Visit: Cataract Right Eye Discharge Discharge Diagnosis / Problem: right cataract Discharge Goals Goal(s): Decrease discomfort, Improve function Activity Recommendations Activity Limitations: as noted below Anesthesia . Post Anesthesia Instructions: If you have had General Anesthesia or IV Sedation: * Do not drive today. * Resume driving when surgeon permits. * Do not make important decisions or sign legal documents today. * Call surgeon for: 1. Temperature elevations greater than 101 degrees F. 2. Uncontrollable pain. 3. Excessive bleeding. 4. Persistent nausea and vomiting. 5. Medication intolerance (nausea, vomiting or rash). * For nausea and vomiting use only clear liquids such as: tea, soda, bouillon until nausea subsides, then gradually increase diet as tolerated. * If you have any concerns or questions, call your surgeon's office. If physician is unavailable and it is an emergency, call 911 or go to the nearest emergency room. . Instructions / Follow-Up Instructions / Follow-Up ACTIVITY RECOMMENDATIONS: * Light activities. * You may walk outside, read, watch television. * You may notice redness on the white part of the eye and some blurry vision - this is normal. MEDICATIONS: Resume previous medications unless instructed otherwise by your surgeon. Start all eye drops at 12:30 pm today: * Eye drops (today): Prednisone - one drop in operative eye every 2 hours while awake Ofloxacin - one drop in operative eye every 2 hours while awake Ketorolac - one drop in operative eye 4 times daily SPECIAL CARE INSTRUCTIONS: * Tape plastic shield over eye to sleep at night. Call your doctor at with any concerns or problems. FOLLOW UP VISIT: Follow-up with Dr Marinelli at [facility] as scheduled. Diet Recommendations Home Diet: no limitations Procedures Procedures Performed: Right Cataract Phacoemulsification With Intraocular Lens Implant Pending Studies Studies pending at discharge: no Medical Emergencies . Who to Call and When: Medical Emergencies: If at any time you feel your situation is an emergency, please call 911 immediately. . Non-Emergent Contact Non-Emergency issues call your: Surgeon . . "Provider Documentation" section prepared by Brant Marinelli. .
--- NOTE | 2018-07-05 10:34 | Anesthesia Progress Nt - [facility] ---
Anesthesia Post Op Note Date & Time Jul 05, 2018 at 10:34 Vital Signs Pain Intensity: 0 Vital Signs Past 12 Hours Date Time Temp Pulse Resp B/P (MAP) Pulse Ox O2 Delivery O2 Flow Rate FiO2 07/05/18 10:12 36.3 77 10 145/84 (104) 96 Room Air 07/05/18 09:12 36.6 75 16 172/109 (130) 95 Room Air Notes Mental Status: alert / awake / arousable, participated in evaluation Pt Amnestic to Procedure: Yes Nausea / Vomiting: adequately controlled Pain: adequately controlled Airway Patency, RR, SpO2: stable & adequate BP & HR: stable & adequate Hydration State: stable & adequate Anesthetic Complications: no major complications apparent
[2018-07-05 10:47] VITALS: BP 149/99; PULSE 78; O2SAT 100
== END | disposition home or self-care (01) ==
LOC: X.SURG 08:37
PROVIDERS: ATTEND Ophthalmology
DX: H25.11 Age-related nuclear cataract, right eye (principal); I10 Essential (primary) hypertension; K21.9 Gastro-esophageal reflux disease without esophagitis; E11.9 Type 2 diabetes mellitus without complications; M06.9 Rheumatoid arthritis, unspecified; E78.00 Pure hypercholesterolemia, unspecified; Z96.693 Finger-joint replacement, bilateral; Z96.659 Presence of unspecified artificial knee joint; Z88.5 Allergy status to narcotic agent; Z88.6 Allergy status to analgesic agent; Z88.1 Allergy status to other antibiotic agents; Z87.891 Personal history of nicotine dependence